=== PATIENT | female | born 1950 | race Caucasian/White ===

== ENCOUNTER 2016-07-20 10:52 | Outpatient (CLI) | payer MEDICARE, OTHER | END 2016-07-20 10:53 | disposition home or self-care (01) | DX: Z12.31 Encounter for screening mammogram for malignant neoplasm of breast (principal) ==

== ENCOUNTER 2016-09-03 14:33 | Outpatient (CLI) | payer MEDICARE, OTHER ==
[2016-09-03 19:44] LABS: BASOPHILS % (AUTO) 0.7 %; EOSINOPHILS # (AUTO) 0.1 10^3/uL (0.0-0.7); HCT - HEMATOCRIT 44.1 % (37.0-47.0); HGB - HEMOGLOBIN 14.6 g/dL (12.0-16.0); LYMPHOCYTES # (AUTO) 1.8 10^3/uL (1.5-3.5); LYMPHOCYTES % (AUTO) 31.6 %; MEAN CORPUSCULAR HEMOGLOBIN 31.9 pg (27.0-31.0); MEAN CORPUSCULAR VOLUME 96.5 fL (81.0-99.0); MEAN PLATELET VOLUME 8.6 fL (7.9-10.8); MONOCYTES # (AUTO) 0.4 10^3/uL (0.0-1.0); NEUTROPHILS # (AUTO) 3.4 10^3/uL (1.5-6.6); NEUTROPHILS % (AUTO) 59.7 %; NUCLEATED RED BLOOD CELLS AUTO 0.1 /100WBC; RED BLOOD COUNT 4.57 10^6/uL (4.20-5.40); RED CELL DISTRIBUTION WIDTH 13.5 % (12.0-15.0); UNCORRECTED WHITE BLOOD COUNT 5.8 x10^3/uL; WHITE BLOOD COUNT 5.8 x10^3/uL (4.8-10.8)
[2016-09-03 20:00] LABS: HEMOGLOBIN A1C 0.63 g/dL
[2016-09-03 20:02] LABS: ALBUMIN/GLOBULIN RATIO 1.4 (1.0-2.2); BILIRUBIN,TOTAL 0.6 mg/dL (0.2-1.0); BUN - BLOOD UREA NITROGEN 20 mg/dL (6-20); CALCIUM 9.2 mg/dL (8.5-10.3); CARBON DIOXIDE - CO2 28 mmol/L (21-32); CHLORIDE 106 mmol/L (101-111); CHOL/HDL RATIO 4.8 (<4.4); CHOLESTEROL 268 mg/dL; CREATININE 1.1 mg/dL (0.4-1.0); GFR - MDRD 50 (>89); GLUCOSE 105 mg/dL (70-100); HDL CHOLESTEROL 56 mg/dL; POTASSIUM 4.2 mmol/L (3.5-5.0); SODIUM 141 mmol/L (135-145); TRIGLYCERIDES 232 mg/dL; VLDL CHOLESTEROL 46 mg/dL
== END 2016-09-03 14:34 | disposition home or self-care (01) ==
LOC: LAB.N 14:33
PROVIDERS: ATTEND Nurse Practitioner Gerontology
DX: E11.9 Type 2 diabetes mellitus without complications (principal); Z79.899 Other long term (current) drug therapy
CPT/HCPCS: 36415; 80053; 80061; 83036; 84443; 85025

== ENCOUNTER 2016-10-11 13:31 | Outpatient (CLI) | payer MEDICARE, OTHER | END 2016-10-11 13:32 | disposition home or self-care (01) | LOC: SC 13:31 | PROVIDERS: ATTEND Internal Medicine Pulmonary Disease | DX: G47.33 Obstructive sleep apnea (adult) (pediatric) (principal) | CPT/HCPCS: 99203; G0463; 99212 ==

== ENCOUNTER 2016-11-01 19:30 | Outpatient (CLI) | payer MEDICARE, OTHER | END 2016-11-01 19:31 | disposition home or self-care (01) | LOC: SC 19:30 | PROVIDERS: ATTEND Internal Medicine Pulmonary Disease | DX: G47.33 Obstructive sleep apnea (adult) (pediatric) (principal) | CPT/HCPCS: 95810 ==

== ENCOUNTER 2016-12-01 09:54 | Outpatient (CLI) | payer MEDICARE, OTHER | END 2016-12-01 09:55 | disposition home or self-care (01) | LOC: SC 09:54 | PROVIDERS: ATTEND Nurse Practitioner Family | DX: G47.33 Obstructive sleep apnea (adult) (pediatric) (principal) | CPT/HCPCS: 99214; G0463; 99212 ==

== ENCOUNTER 2017-06-14 10:34 | Outpatient (CLI) | payer MEDICARE, OTHER ==
--- NOTE | 2017-06-14 15:19 | XRAY Report ---
TWO VIEW CHEST: 06/14/2017 CLINICAL INDICATION: Shortness of breath, congestion. COMPARISON: 09/04/2013. FINDINGS: Frontal and lateral views of the chest demonstrate a normal cardiac silhouette. The lungs are clear. No effusion or pneumothorax is present. IMPRESSION: NORMAL CHEST, UNCHANGED. TD: 06/14/2017 15:18
== END 2017-06-14 10:35 | disposition home or self-care (01) ==
LOC: DI 10:34
PROVIDERS: ATTEND Internal Medicine Hematology & Oncology
DX: R05 Cough (principal); R06.02 Shortness of breath
CPT/HCPCS: 71046

== ENCOUNTER 2017-07-21 12:58 | Outpatient (CLI) | payer MEDICARE, OTHER ==
--- NOTE | 2017-07-22 11:56 | Mammography Report ---
DIGITAL SCREENING RIGHT MAMMOGRAM: 07/21/2017 CLINICAL INDICATION: A 66-year-old with personal history of left breast cancer , status post mastectomy and chemotherapy, for screening. TECHNIQUE: Right CC and MLO views were obtained. COMPARISON: 07/2016, 05/2015, 04/2014, 02/2013, 02/2012, 12/2010. FINDINGS: The right breast demonstrates scattered fibroglandular densities. Punctate, typically benign calcifications are present. No suspicious masses, clustered microcalcifications, or regions of architectural distortion are identified. IMPRESSION: BENIGN FINDINGS. RECOMMENDATION: ROUTINE ANNUAL SCREENING UNLESS OTHERWISE CLINICALLY INDICATED. BIRADS CATEGORY 2 - BENIGN FINDINGS. STANDARD QUALIFYING STATEMENTS 1. This examination was reviewed with the aid of Computer-Aided Detection (CAD) . 2. A negative or benign imaging report should not delay biopsy if clinically suspicious findings are present. Consider surgical consultation if warranted. More than 5% of cancers are not identified by imaging. 3. Dense breasts may obscure an underlying neoplasm. TD: 07/22/2017 11:55 VICTOR M
== END 2017-07-21 12:59 | disposition home or self-care (01) ==
LOC: DI 12:58
PROVIDERS: ATTEND Internal Medicine Hematology & Oncology
DX: Z12.31 Encounter for screening mammogram for malignant neoplasm of breast (principal); Z85.3 Personal history of malignant neoplasm of breast; Z90.12 Acquired absence of left breast and nipple

== ENCOUNTER 2018-08-28 15:52 | Outpatient (CLI) | payer MEDICARE, OTHER ==
--- NOTE | 2018-08-29 10:19 | Mammography Report ---
Reason: L BREAST CA Procedure Date: 08/28/2018 Accession Number: [id number] / [id number] Procedure: [facility] - Screening Mammo Right w/Ramón CPT Code: FULL RESULT: EXAM: Screening Mammo Right w/Ramón DATE: 08/28/2018 4:28 PM CLINICAL HISTORY: Screening encounter. Personal history of breast cancer status post left mastectomy. TECHNIQUE: (R) - Right CC and MLO views were obtained. COMPARISON: 07/21/2017 through 04/16/2014. PARENCHYMAL PATTERN: (A) - The breast(s) demonstrate(s) scattered fibroglandular densities. FINDINGS: There are coarse typically benign calcifications. There are no suspicious masses, calcifications, or areas of distortion. IMPRESSION: Benign findings. BI-RADS category 2. RECOMMENDATION: (ANNUAL) - Recommend routine annual screening mammography. BI-RADS CATEGORY: (2) - Benign Findings. STANDARD QUALIFYING STATEMENTS: 1. This examination was not reviewed with the aid of Computer-Aided Detection (CAD). 2. A negative or benign imaging report should not preclude biopsy if clinically suspicious findings are present. 3. Dense breasts may obscure an underlying neoplasm. 4. This examination was reviewed with the aid of 3D breast imaging (tomosynthesis).
== END 2018-08-28 15:53 | disposition home or self-care (01) ==
LOC: DI 15:52
PROVIDERS: ATTEND Internal Medicine Hematology & Oncology
DX: Z12.31 Encounter for screening mammogram for malignant neoplasm of breast (principal); Z85.3 Personal history of malignant neoplasm of breast; Z90.12 Acquired absence of left breast and nipple
CPT/HCPCS: 77063

== ENCOUNTER 2018-12-13 12:45 | Outpatient (CLI) | payer MEDICARE, OTHER ==
--- NOTE | 2018-12-13 13:34 | SLEEP CARE CONSULTATION ---
Information from patient questionnaire entered by Modesta Ruff. I have reviewed and concur with the information entered by Modesta Ruff. This document represents the service I personally performed and the decisions made by me, Whitney Miramontes, RN, MSN, DROSOPHERE OPERATOR. History of Present Illness Previous diagnosis: Mild, Obstructive Sleep Apnea-Hypopnea Syndrome AHI: 13.4 Reason for CPAP/BiPAP follow up: annual, other (with oral appliance) HPI additional information: Patient is here today to evaluate effectiveness of oral appliance. She has been using an oral appliance since 2010. She had a new appliance made in 2017 after seen here with Dr. Jade in [place]. She submitted to Medicare with some coverage refunded. She has been using it nightly since. She feels more rested with use. She has no way of knowing if reduced the snoring as she is single and sleeps alone. Subjective On therapy, patient: denies: drowsiness while driving Initial [place] Sleepiness Scale score: 11 Current [place] Sleepiness Scale score: 13 Allergies and Home Medications Known drug allergies: No (some environmental allergies ) Home medication list reviewed: Yes Allergy and home medication list: 1. Bupropin: [id number] per day 2. Venlafaxine: 225mg 1x per day Review of Systems Review of systems same as previous: No (Injured left rotator with benefit from PT / plantar facitis better with PT) Physical Exam Blood Pressure: 122/72 Cuff size: long Heart Rate: 89 O2 Saturation: 98 Height: 5 ft 5.5 in Weight (kg): 95.436 kg Body Mass Index: 34.4 BMI Classification: Class 1 Heart: regular rate and rhythm Lungs: clear bilaterally Abdomen: soft Extremities: no edema or clubbing Impression and Plan Obstructive sleep apnea, mild, with good benefit stated from oral appliance in reduction of sleepiness symptoms. She uses the device nightly and feels the oral appliance is comfortable to use and denies jaw pain. Patient is here today to check effectiveness of oral appliance in reducing apnea. This can be done with a polysomnography using the oral appliance. With this data, it can seen if apnea control is effective. If not, further adjustment can be done. Treatment of her apnea can benefit her depression which the patient states is well controlled at this time and medications have been reduced recently. For her weight concerns. We looked at BMI chart and discussed her most comfortable weight in past to have a goal. It was 185 pounds when she was taller. Thus she is advised first to have this as her weight goal but encouraged to work with a relay associate for optimal results. She can discuss a referral with her PCP. The goal is to reduce waist circumference to reduce health risks. She is active physically which should reduce some health risks. Patient agreed with plan. Plan: Attempt to lose weight, Avoid alcohol, sedatives, and muscle relaxants around bedtime, Schedule polysomnography Follow up to be scheduled in: after polysomnography I spent 100% of this 30 minute visit face to face with the patient with greater than 50% of this was spent time counseling the patient and coordination of care.
[2018-12-13 13:35] VITALS: BP 122/72
== END 2018-12-13 12:46 | disposition home or self-care (01) ==
LOC: SC 12:45
PROVIDERS: ATTEND Nurse Practitioner Family
DX: G47.33 Obstructive sleep apnea (adult) (pediatric) (principal)
CPT/HCPCS: 99214; G0463; 99212

== ENCOUNTER 2018-12-27 19:49 | Outpatient (CLI) | payer MEDICARE, OTHER | END 2018-12-27 19:50 | disposition home or self-care (01) | LOC: SC 19:49 | PROVIDERS: ATTEND Internal Medicine Pulmonary Disease | DX: G47.33 Obstructive sleep apnea (adult) (pediatric) (principal); G47.61 Periodic limb movement disorder | CPT/HCPCS: 95810 ==

== ENCOUNTER 2019-01-31 13:16 | Outpatient (CLI) | payer MEDICARE, OTHER ==
[2019-01-31 14:16] VITALS: BP 120/70
--- NOTE | 2019-01-31 14:16 | SLEEP CARE CONSULTATION ---
Information from patient questionnaire entered by Modesta Ruff. I have reviewed and concur with the information entered by Modesta Ruff. This document represents the service I personally performed and the decisions made by me, Whitney Miramontes RN, MSN, BREAD ROOM HAND. History of Present Illness Initial [place] Sleepiness Scale score: 11 Current [place] Sleepiness Scale score: 10 (Using Oral Appliance) Additional HPI information: MAURO SHOOK returns for follow up of the recently performed polysomnography with oral appliance. However, she has difficulty falling to sleep and maintaining sleep. She reports that she has difficulty sleeping in new environment initially. The patient was informed of the following polysomnography findings. The report did not include her use of oral appliance but found in tech notes and will inform Dr. Waggoner so he can correct report. I explained the pathophysiology behind obstructive sleep apnea. Because apnea is primarily in supine position, then positional management therapy could be effective. Methods discussed such as positioning with pillows, using a T-shirt with tennis balls in the back, and shown commercial products that have a pillow format on back to prevent supine sleep. I reviewed the impact of weight changes on sleep apnea and strongly recommended losing weight. She would like to continue with oral appliance. She has used CPAP in past and did not like. Patient counseled not drink alcohol less than 4 hours before bedtime as it can increase snoring and apnea. Patient was cautioned about risks of drowsy driving until sleepiness symptoms resolve. Patient denies drowsy driving. Sleep Study - Polysomnography Polysomnography findings: The quality of the study is good. The patient had reduced sleep efficiency due to frequent awakenings after the sleep onset. The sleep architecture was abnormal for sleep fragmentation and reduced amount of time spent in REM sleep. Respiratory monitoring showed mild obstructive sleep apnea-hypopnea (AHI = 5.2) associated with frequent arousals, oxyhemoglobin desaturation and mild hypoxia (shahid oxygen saturation of 87%). This is despite the patient wearing the oral appliance. The respiratory events occurred almost exclusively during supine sleep (supine AHI = 10.3; non-supine = 3.48). Snore was loud in intensity. There was mild periodic leg movement of sleep contributing to the sleep fragmentation. Cardiac rhythm was normal sinus rhythm without significant arrhythmia. No abnormal behavior (parasomnia) observed during the night. Allergies and Home Medications Known drug allergies: No Home medication list reviewed: Yes (no changes) Review of Systems Review of systems same as previous: Yes Physical Exam Blood Pressure: 120/70 Cuff size: long Heart Rate: 91 O2 Saturation: 98 Height: 5 ft 5.5 in Weight: 206 lb 12.8 oz Weight change since last visit: lost 4 pounds Body Mass Index: 33.9 BMI Classification: Obesity Class 1 Impression and Plan 1. Obstructive Sleep Apnea-Hypopnea Syndrome, mild, with lowest oxygen saturation of 87% even with use of her oral appliance. Currently she feels the oral appliance has reduced sleepiness symptoms and would like to continue as she did not like using CPAP in the past. She was informed that her appliance needed further adjustment. A list of accredited given as her dentist retired. She will check if her regular dentist can make adjustments. In addition she is advised to continue to lose weight as this will reduce her apnea risk. She has been referred to a audit intern to assist her to lose weight. Because the apnea is more severe supine, I instructed to avoid sleeping supine using pillow positioning or Tshirt with tennis balls in spine until able to have her appliance adjusted. We also discussed that once her appliance is adjusted and her symptoms are further reduced. She would like to have a HST to retest her appliance as feels she would sleep better in her own bed. The sleep study conclusion did not mention that patient used her oral appliance but was in the techinician note. So I will have Dr. Ordoñez review and revise report. A copy will then be sent to patient and PCP. * Adjust oral appliance * continue to lose weight. * Avoid alcohol consumption near bedtime. * Avoid supine sleep until appliance adjusted. * Report review by Dr Waggoner to reflect appliance use. * Return after all adjustments made, about 2-3 months. I spent 100% of this 35 minute visit face to face with the patient with greater than 50% of this was spent time counseling the patient and coordination of care.
== END 2019-01-31 13:17 | disposition home or self-care (01) ==
LOC: SC 13:16
PROVIDERS: ATTEND Nurse Practitioner Family
DX: G47.33 Obstructive sleep apnea (adult) (pediatric) (principal); E66.9 Obesity, unspecified; Z68.33 Body mass index [BMI] 33.0-33.9, adult
CPT/HCPCS: 99214; G0463; 99212

== ENCOUNTER 2019-06-04 13:53 | Outpatient (CLI) | payer MEDICARE, OTHER ==
[2019-06-04 14:55] VITALS: BP 122/66
--- NOTE | 2019-06-04 14:55 | SLEEP CARE CONSULTATION ---
Information from patient questionnaire entered by Modesta Ruff. I have reviewed and concur with the information entered by Modesta Ruff. This document represents the service I personally performed and the decisions made by me, Whitney Miramontes, RN, MSN, LOADER UNLOADER. History of Present Illness Previous diagnosis: Mild, Obstructive Sleep Apnea-Hypopnea Syndrome AHI: 5.2 Reason for follow up: other (2 month with oral appliance) HPI additional information: Patient brought her oral appliance to her personal dentist to evaluate as her dentist who made the oral appliance retired. She did not contact the office to see if there someone to refer to from his office base. She is still is using her oral appliance and continues to feel that she sleeps better, awakens refreshed and is more rested overall. She also states that she prefers to sleep on her side as it is uncomfortable on her back or stomach. She never wakes on her back. She has also been to a latex dipper to lose weight and has a plan. Subjective Initial [place] Sleepiness Scale score: 11 Current [place] Sleepiness Scale score: 2 Allergies and Home Medications Known drug allergies: No Home medication list reviewed: Yes (no changes except added Red Yeast rice per PCP ) Allergy and home medication list: venlafaxine HCL 225mg daily bupropion 300mg daily vitamine D 5000 daily omega 3 fish oil 1000mg daily Probiotic daily multivitamin daily Review of Systems Review of systems same as previous: Yes Physical Exam Blood Pressure: 122/66 Cuff size: long Heart Rate: 83 O2 Saturation: 98 Height: 5 ft 5.5 in Weight: 208 lb 12.8 oz Weight change since last visit: gained 2 pounds Body Mass Index: 34.2 BMI Classification: Obese Impression and Plan 1. Obstructive Sleep Apnea-Hypopnea Syndrome, mild , with nightly use of oral appliance except a 4 nights of use to re-evaluate effectiveness. The nights she uses her oral appliance she sleeps better and awakens refreshed is more rested overall. But when she did not use her oral appliance she did not awaken refreshed and was more tired during the day. She is planning on losing about 15- 20 pounds over the next 6 months which will reduce apnea risk, and overall health risks and bring her BMI down 29-30. She states she did not snore at this weight. Currently until then, she would like to ensure her oral appliance is adjusted properly. So she is advised to contact her retired dentist office is open to discuss referral or she can contact one of the accredited dentists for Medicare on the list given. Patient's apnea severity and rationale for treatment to reduce apnea, improve sleep quality and reduce cardiovascular and cerebrovascular events was reviewed. Her next follow up would be scheduled if she had her appliance adjusted to check effectiveness or if lost significant weight to see if apnea still present. * Continue oral appliance * * Notify me if snoring with mask or feeling that the pressure is too much or too little * Attempt to lose weight * Call this office if any problems using CPAP * Return for follow up as indicated. Time Spent with Patient (minutes): 35 I spent 100% of this visit face to face with the patient with greater than 50% of this was spent time counseling the patient and coordination of care.
== END 2019-06-04 13:54 | disposition home or self-care (01) ==
LOC: SC 13:53
PROVIDERS: ATTEND Nurse Practitioner Family
DX: G47.33 Obstructive sleep apnea (adult) (pediatric) (principal); E66.9 Obesity, unspecified; Z68.34 Body mass index [BMI] 34.0-34.9, adult
CPT/HCPCS: 99214; G0463; 99212

== ENCOUNTER 2019-11-28 15:03 | Outpatient (CLI) | payer MEDICARE, OTHER ==
--- NOTE | 2019-11-29 10:02 | Mammography Report ---
UNILATERAL RIGHT DIGITAL SCREENING MAMMOGRAM 3D/2D: 11/28/2019 CLINICAL: Routine screening. Comparison is made to exams dated: 08/28/2018 mammogram, 07/21/2017 mammogram, 07/20/2016 mammogram, mammogram, 04/16/2014 mammogram, and 02/12/2013 mammogram - [facility]. There are scattered fibroglandular elements in right breast. No significant masses, calcifications, or other findings are seen in the breast. There has been no significant interval change. IMPRESSION: NEGATIVE There is no mammographic evidence of malignancy. A 1 year screening mammogram is recommended. This exam was interpreted at Station ID: [id number]. NOTE: For mammograms, a report in lay terms will be sent to the patient. Approximately 15% of breast malignancies will not be visualized mammographically. In the management of a palpable breast mass, a negative mammogram must not discourage biopsy of a clinically suspicious lesion. Electronically Signed By: Ton rios/celeste:11/28/2019 16:30:31 ACR BI-RADS Category 1: Negative 3341F PARENCHYMAL PATTERN: (A) - The breast(s) demonstrate(s) scattered fibroglandular densities. BI-RADS CATEGORY: (1) - 1 RECOMMENDATION: (ANNUAL) - Recommend routine annual screening mammography. [id number] 1 year screening LATERALITY: (B)
== END 2019-11-28 15:04 | disposition home or self-care (01) ==
LOC: DI.N 15:03
PROVIDERS: ATTEND Internal Medicine Hematology & Oncology
DX: Z12.31 Encounter for screening mammogram for malignant neoplasm of breast (principal)
CPT/HCPCS: 77063

== ENCOUNTER 2020-07-11 11:48 | Outpatient (CLI) | payer MEDICARE, OTHER ==
--- NOTE | 2020-07-11 12:30 | SLEEP CARE CONSULTATION ---
Information from patient questionnaire entered by Modesta Ruff. I have reviewed and concur with the information entered by Modesta Ruff. This document represents the service I personally performed and the decisions made by , Angie Peoples ARNP. History of Present Illness Service Date and Time: 07/11/2020 1148 Previous diagnosis: Mild, Obstructive Sleep Apnea-Hypopnea Syndrome AHI: 5.2 (in 2019 )(5.5 in 2017) Reason for follow up: annual (last seen 05/2019 - oral appliance ) Prior sleep studies: Yes Year and Where: 2018 and [address] [facility] Type of Sleep Study: Polysomnography HPI additional information: MAURO SHOOK was diagnosed to have mild, AHI 5.2 (2018)/5.5 (2017), obstructive sleep apnea-hypopnea syndrome and returned today for oral appliance therapy annual follow-up. CPAP Compliance Data Compliance data discussion: Patient has been using an oral appliance for her obstructive sleep apnea. She uses it nightly and has used it [365] days over the last year. Her current oral appliance has a crack on the bottom piece of the device. She needs her device re placed. Subjective Patient concerns: reports: nasal congestion, other (Device - proper fit, need new one as lower one is broken) Initial [place] Sleepiness Scale score: 11 (in 2017) Current [place] Sleepiness Scale score: 10 Allergies and Home Medications Home medication list reviewed: Yes (no changes) Review of Systems Review of systems same as previous: Yes (no changes) Physical Exam Heart Rate: 91 O2 Saturation: 92 Height: 5 ft 5.5 in Weight: 223 lb Body Mass Index: 36.5 BMI Classification: Obese Impression and Plan 1. Obstructive Sleep Apnea-Hypopnea Syndrome, mild, who has been using an oral appliance nightly with no nights missed. On oral appliance therapy, the patient has better sleep quality and is more rested overall. Her [place] is 10/24 today and she states she is tired the next day if she is not able to sleep with her oral device. She needs to replace her oral appliance because the lower portion is broken and her dentist states it cannot be repaired. He recommended that she come in because she had a lot of trouble getting Medicare to pay for her oral appliance. I will write a prescription to replace her oral appliance and a letter explaining need of replacement with her diagnosis. Patient's apnea severity and rationale for treatment to reduce apnea, improve sleep quality and reduce cardiovascular and cerebrovascular events was reviewed. * Continue oral appliance therapy for her mild GAVINO * Prescription for replacement device * Attempt to lose weight * Return for follow up in 1 year, or sooner if concerns arise Counseling Topics: Weight loss health impact Visit Type: In Office Time Spent with Patient (minutes): 26 Provider Statement: I spent 100% of the Face to Face Visit with the patient with greater than 50% spent counseling the patient and coordination of care.
== END 2020-07-11 11:49 | disposition home or self-care (01) ==
LOC: SC 11:48
PROVIDERS: ATTEND Nurse Practitioner Family
DX: G47.33 Obstructive sleep apnea (adult) (pediatric) (principal); E66.9 Obesity, unspecified; Z68.36 Body mass index [BMI] 36.0-36.9, adult
CPT/HCPCS: 99213; G0463; 99212

== ENCOUNTER 2022-08-18 12:46 | Outpatient (CLI) | payer MEDICARE, OTHER ==
--- NOTE | 2022-08-19 09:13 | Mammography Report ---
UNILATERAL RIGHT DIGITAL SCREENING MAMMOGRAM 3D/2D: 08/18/2022 CLINICAL: Routine screening. Personal history of left breast cancer. Comparison is made to exams dated: 11/28/2019 mammogram, 08/28/2018 mammogram, 07/21/2017 mammogram, 02/2017 mammogram, 05/27/2015 mammogram, and 04/16/2014 mammogram - [facility]. There are scattered areas of fibroglandular density in the right breast (category b / 25%-50% glandul ar tissue). No significant masses, calcifications, or other findings are seen in the breast. There has been no significant interval change. IMPRESSION: NEGATIVE There is no mammographic evidence of malignancy. A 1 year screening mammogram is recommended. This exam was interpreted at Station ID: [id number]. NOTE: For mammograms, a report in lay terms will be sent to the patient. Approximately 15% of breast malignancies will not be visualized mammographically. In the management of a palpable breast mass, a negative mammogram must not discourage biopsy of a clinically suspicious lesion. Electronically Signed By: Eduardo concepcion/celeste:08/18/2022 14:45:13 letter sent: No_Letter ACR BI-RADS Category 1: Negative 3341F PARENCHYMAL PATTERN: (A) - The breast(s) demonstrate(s) scattered fibroglandular densities. BI-RADS CATEGORY: (1) - 1 Mammogram [id number] 1 year screening LATERALITY: (B)
== END 2022-08-18 12:47 | disposition home or self-care (01) ==
LOC: DI 12:46
DX: Z12.31 Encounter for screening mammogram for malignant neoplasm of breast (principal); Z85.3 Personal history of malignant neoplasm of breast

== ENCOUNTER 2022-10-13 16:36 | Outpatient (CLI) | payer MEDICARE, OTHER ==
--- NOTE | 2022-10-13 12:18 | SLEEP CARE CONSULTATION ---
Information from patient questionnaire entered by Heaven Mukherjee. I have reviewed and concur with the information entered by Heaven Mukherjee. This document represents the service I personally performed and the decisions made by me, Angie Peoples ARNP. History of Present Illness Service Date and Time: 10/13/2022 1140 Previous diagnosis: Mild, Obstructive Sleep Apnea-Hypopnea Syndrome AHI: 5.2 (in 2019 )(5.5 in 2017) Reason for follow up: other (LAST SEEN 08/2021) Equipment type: Dental Appliance (2019 SLEEP STUDY,) Prior sleep studies: Yes Year and Where: 2018 and 2016 - [facility] Type of Sleep Study: Polysomnography HPI additional information: MAURO SHOOK was diagnosed to have mild, AHI 5.2, obstructive sleep apnea- hypopnea syndrome and returns via telehealth visit today for Oral appliance therapy annual follow-up. Sleep Study - Results Type of Sleep Study: Polysomnography Prior sleep studies: Yes Year and Where: 2018 and 2016 - [facility] CPAP Compliance Data Compliance data discussion: She is wearing her oral appliance every night without difficulty. Subjective On therapy, patient: reports: sleeping better, other (She will awaken refreshed but within 1-2 hours she is feeling fatigued and will need naps). denies: drowsiness while driving Initial [place] Sleepiness Scale score: 11 (in 2016) Current [place] Sleepiness Scale score: 17 () Allergies and Home Medications Known drug allergies: No Drug allergies reviewed: Yes Home medication list reviewed: Yes (Atorvastatin 10 mg) Allergy and home medication list: Allergies No Known Drug Allergies Allergy (Verified 10/13/22 10:05) Review of Systems Review of systems same as previous: No (extreme fatigue) Physical Exam Vital signs obtained and entered by: HEAVEN Montgomery MA Height: 5 ft 6 in (PER PT) Weight: 210 lb (PER PT) Weight change since last visit: 4 lb loss Body Mass Index: 33.9 BMI Classification: Obese Impression and Plan 1. Obstructive Sleep Apnea-Hypopnea Syndrome, mild, using an oral appliance. Patient coming in with concerns about extreme daily fatigue. She states she even went to the ED with fatigue and shortness of breath. They have run a lot of tests and so far have not uncovered a definitive cause but evidently there was some lung issue. She did not understand what it was and has a follow up with cardiology for further evaluation although so far her heart has checked out fine. She saw a electrical installation supervisor too. She says they are even considering long covid even though she tests negative for covid. She is here because her PCP is wanting to see if there are any changes with her sleep apnea. She is using her oral appliance faithfully every night. This is a new device she received 2 years ago. She has never done a study with it in place to check the effectiveness. I think we should have her complete a PSG with the oral appliance in place to see how effective it is and if there are any changes. I will follow up with her after the sleep study is completed. Patient's apnea severity and rationale for treatment to reduce apnea, improve sleep quality and reduce cardiovascular and cerebrovascular events was reviewed. 2. Obesity, unspecified. Currently patients BMI is 33.9. Obesity increases the risk of apnea, CPAP pressure requirements and overall health risks especially cardiovascular and diabetes. Thus patient is advised to continue to try to lose weight. -Continue oral appliance therapy -PSG with oral appliance in place -Attempt to lose weight -Call this office if any problems -Return for follow up after PSG with oral appliance, or sooner if concerns arise Counseling Topics: Weight loss health impact Visit Type: Telehealth Phone Video Type: Yoshi Patient Location: Home Location of Provider: Office Patient agrees and consents to this telehealth visit type: Yes Patient agrees to have their insurance billed: Yes Time Spent with Patient (minutes): 15 Provider Statement: I spent 100% of the Telehealth Phone Call with the patient with greater than 50% spent counseling the patient and coordination of care.
== END 2022-10-13 16:37 | disposition home or self-care (01) ==
LOC: SC 16:36
PROVIDERS: ATTEND Nurse Practitioner Family
DX: G47.33 Obstructive sleep apnea (adult) (pediatric) (principal); E66.9 Obesity, unspecified; Z68.33 Body mass index [BMI] 33.0-33.9, adult

== ENCOUNTER 2022-10-17 20:29 | Outpatient (CLI) | payer MEDICARE, OTHER | END 2022-10-17 20:30 | disposition home or self-care (01) | LOC: SC 20:29 | PROVIDERS: ATTEND Nurse Practitioner Family | DX: G47.33 Obstructive sleep apnea (adult) (pediatric) (principal); R09.02 Hypoxemia | CPT/HCPCS: 95810 ==

== ENCOUNTER 2022-11-05 12:44 | Outpatient (CLI) | payer MEDICARE, OTHER ==
--- NOTE | 2022-11-05 13:25 | Sleep Patient Instructions ---
Sleep Center Visit Summary - Patient Visit Information Reason for Visit: Sleep study followup with oral device in place - Patient Instructions Additional Instructions: You were here for follow up of Oral appliance therapy. You will be continued Oral appliance. You should follow up with sleep care in 12 months. You may contact us sooner for any questions or concerns. - Clinic Information Contact: [facility] [address] [place] [address] [email or web address] T: [phone]
--- NOTE | 2022-11-05 13:30 | SLEEP CARE CONSULTATION ---
Information from patient questionnaire entered by Heaven Mukherjee. I have reviewed and concur with the information entered by Heaven Mukherjee. This document represents the service I personally performed and the decisions made by , Angie Peoples ARNP. History of Present Illness Service Date and Time: 11/05/2022 1244 Initial [place] Sleepiness Scale score: 11 (in 2017) Current [place] Sleepiness Scale score: 12 (11/05/22) Additional HPI information: MAURO SHOOK returns for follow up and results of the recently performed polysomnography with her oral appliance in place. The patient was informed of the following findings: No significant sleep disordered breathing with an average AHI of [4] and shahid oxygen saturation of [80%]. Her baseline oxygen level was low at 90%. Sleep Study - Results Type of Sleep Study: Polysomnography (COMPLETED 10/17/22) Prior sleep studies: Yes Year and Where: 2018 and 2016 - [facility] Polysomnography/Home Sleep Study results: IMPRESSION: The quality of the study is good. The patient had reduced sleep efficiency due to a prolonged awakening in the middle of the night. The sleep architecture was relatively normal considering the first-night effect. Respiratory monitoring showed no significant sleep disordered breathing (AHI = 4.0). There was mild hypoxemia due to the low-normal baseline oxygen saturation of 90% (shahid oxygen saturation of 80%). The few respiratory events occurred almost exclusively during supine sleep (supine AHI = 6.2; non- supine = 3.67). Snore was light in intensity. There was no significant periodic leg movement of sleep. Cardiac rhythm was normal sinus rhythm without significant arrhythmia. No abnormal behavior (parasomnia) observed during the night. Allergies and Home Medications Known drug allergies: No Drug allergies reviewed: Yes Home medication list reviewed: Yes (Desvenlafaxine) Allergy and home medication list: Allergies No Known Drug Allergies Allergy (Verified 11/04/22 15:03) Review of Systems Review of systems same as previous: Yes (shortness of breath, chronic fatigue, some joint ache) Physical Exam Vital signs obtained and entered by: HEAVEN Montgomery MA Blood Pressure: 116/72 (LEFT ARM) Cuff size: regular Heart Rate: 103 O2 Saturation: 94 Height: 5 ft 6 in (PER PT) Weight: 214 lb 6.4 oz Body Mass Index: 34.6 BMI Classification: Obese Impression and Plan 1. Obstructive Sleep Apnea-Hypopnea Syndrome, mild. She returns after PSG with oral appliance in place to check efficiency. Her appliance appears to be effective but she does have a mildly elevated supine AHI at 6.2 and should avoid supine sleep or have her device adjusted by her dentist. She states she does not sleep on her back, she is a side sleeper normally. She feels her fatigue symptoms may be slightly improved since our last visit. Her PCP thinks she may have long Covid and she continues to have evaluations by cardiology and pulmonology. She continues to get short of breath with even light activity. Patient's apnea severity and rationale for treatment to reduce apnea, improve sleep quality and reduce cardiovascular and cerebrovascular events was reviewed. 2. Hypoxemia, mild, with a shahid oxygen saturation of 80% and 21.4 minutes spent under 90%. Her baseline oxygen saturation was low normal with an average oxygen saturation of 90%. Further evaluation of hypoxemia is recommended. She states she has an appointment with a dual hose cementer today and will discuss this with them. She has a copy of the sleep study to take with her. 3. Obesity, unspecified. Currently patients BMI is 34.6. Obesity increases the risk of apnea, CPAP pressure requirements and overall health risks especially cardiovascular and diabetes. Thus patient is advised to continue to try to lose weight. -Continue oral appliance therapy -Continue to try to lose weight -Call this office if any problems -Return for follow up in 1 year, or sooner if concerns arise Counseling Topics: Weight loss health impact Visit Type: In Office Time Spent with Patient (minutes): 29 Provider Statement: I spent 100% of the Face to Face Visit with the patient with greater than 50% spent counseling the patient and coordination of care.
[2022-11-05 13:31] VITALS: BP 116/72
== END 2022-11-05 12:45 | disposition home or self-care (01) ==
LOC: SC 12:44
PROVIDERS: ATTEND Nurse Practitioner Family
DX: G47.33 Obstructive sleep apnea (adult) (pediatric) (principal); R09.02 Hypoxemia; E66.9 Obesity, unspecified; Z68.34 Body mass index [BMI] 34.0-34.9, adult
CPT/HCPCS: 99213; G0463; 99212

== ENCOUNTER 2023-04-12 11:06 | Outpatient (CLI) | payer MEDICARE, OTHER ==
--- NOTE | 2023-04-12 12:04 | Sleep Patient Instructions ---
Sleep Center Visit Summary - Patient Visit Information Reason for Visit: 6 month followup with sleep care - Patient Instructions Additional Instructions: You were here for follow up of Oral appliance therapy. You will be continued on oral appliance therapy until after evaluation by pulmonology. I have given you a new prescription to update your oral appliance. You should follow up with sleep care in 3 months. You may contact us sooner for any questions or concerns. - Clinic Information Contact: [facility] [address] [place] [address] [email or web address] T: [phone]
--- NOTE | 2023-04-12 12:10 | SLEEP CARE CONSULTATION ---
Information from patient questionnaire entered by Heaven Mukherjee. I have reviewed and concur with the information entered by Heaven Mukherjee. This document represents the service I personally performed and the decisions made by me, Angie Peoples ARNP. History of Present Illness Service Date and Time: 04/12/2023 1106 Previous diagnosis: Mild, Obstructive Sleep Apnea-Hypopnea Syndrome AHI: 5.2 (in 2018 )(5.5 in 2017) Reason for follow up: six month (F/U DISCUSS TREATMENT OPTIONS) Equipment type: Dental Appliance (2018 SLEEP STUDY,) Prior sleep studies: Yes Year and Where: 2018 and 2016 - [facility] Sleep Type of Sleep Study: Polysomnography (COMPLETED 10/17/22) HPI additional information: MAURO SHOOK was diagnosed to have mild, AHI 5.2, obstructive sleep apnea- hypopnea syndrome and returned today for oral appliance therapy six month follow-up to discuss treatment options. Sleep Study - Results Type of Sleep Study: Polysomnography (COMPLETED 10/17/22) Prior sleep studies: Yes Year and Where: 2018 and 2016 - [facility] Sleep Subjective Initial [place] Sleepiness Scale score: 11 (in 2017) Current [place] Sleepiness Scale score: 11 (04/12/23) Allergies and Home Medications Known drug allergies: No Drug allergies reviewed: Yes Home medication list reviewed: Yes (Desvenlafacine 100 mg daily) Allergy and home medication list: Allergies No Known Drug Allergies Allergy (Verified 04/08/23 09:01) Review of Systems Review of systems same as previous: Yes (no changes) Physical Exam Vital signs obtained and entered by: HEAVEN Montgomery MA Blood Pressure: 135/87 (LEFT ARM) Cuff size: regular Heart Rate: 82 O2 Saturation: 95 Height: 5 ft 6 in (PER PT) Weight: 222 lb Body Mass Index: 35.8 BMI Classification: Obese Impression and Plan 1. Obstructive Sleep Apnea-Hypopnea Syndrome, mild. On oral appliance therapy, the patient has better sleep quality and is more rested overall. She says her oral appliance is 3 years old and getting worn out. She also had a new crown put on and now the appliance is causing a little mouth discomfort. We discussed other treatment options like the CPAP and Inspire implant therapy. She is set up for an evaluation by pulmonology to see if it would be better for her to be on CPAP, oral appliance or oxygen therapy. She is waiting for a device she takes home to evaluate her oxygen at night. I gave her a prescription for a new oral device because she would like to get one anyway but was having trouble finding a dentist to work with Medicare for her dental appliance. I gave her information about [facility] who have been good with working with patient's insurances. I will followup with her in 3 months. Patient's apnea severity and rationale for treatment to reduce apnea, improve sleep quality and reduce cardiovascular and cerebrovascular events was reviewed. 2. Obesity, unspecified. Currently patients BMI is 35.8. Obesity increases the risk of apnea and overall health risks especially cardiovascular and diabetes. Thus patient is advised to lose weight. * Continue Oral appliance * Notify me if snoring with mask or feeling that the pressure is too much or too little * Attempt to lose weight * Call this office if any problems * Return for follow up in 3 months, or sooner if concerns arise Counseling Topics: Sleeping position, Weight loss health impact Prescriptions: Other (replacement of oral device) Follow up with Sleep Care in: 3 months Visit Type: In Office Time Spent with Patient (minutes): 33 Provider Statement: I spent 100% of the Face to Face Visit with the patient with greater than 50% spent counseling the patient and coordination of care.
[2023-04-12 12:13] VITALS: BP 135/87; O2SAT 95
== END 2023-04-12 11:07 | disposition home or self-care (01) ==
LOC: SC 11:06
PROVIDERS: ATTEND Nurse Practitioner Family
DX: G47.33 Obstructive sleep apnea (adult) (pediatric) (principal); E66.9 Obesity, unspecified; Z68.35 Body mass index [BMI] 35.0-35.9, adult
CPT/HCPCS: 99213; G0463; 99212

== ENCOUNTER 2023-05-16 13:59 | Outpatient (CLI) | payer MEDICARE, OTHER ==
--- NOTE | 2023-05-16 20:50 | SLEEP CARE CONSULTATION ---
Information from patient questionnaire entered by Herbert Mukherjee. I have reviewed and concur with the information entered by Herbert Mukherjee. This document represents the service I personally performed and the decisions made by me, Miryam Waggoner MD, [facility]. History of Present Illness Service Date and Time: 05/16/2023 1359 Previous diagnosis: Mild, Obstructive Sleep Apnea-Hypopnea Syndrome AHI: 5.2 (in 2019 )(5.5 in 2017) Reason for follow up: other (ONE MONTH F/U) Equipment type: Dental Appliance (2019 SLEEP STUDY,) Prior sleep studies: Yes Year and Where: 2018 and 2016 - [facility] Sleep Type of Sleep Study: Polysomnography (COMPLETED 10/17/22) HPI additional information: Ms. Atkinson had mild obstructive sleep apnea-hypopnea that was adequately controlled with a mandibular advancing device. Without the device, she had mild obstructive sleep apnea-hypopnea (AHI was 5.5 in 2017). With the oral appliance, her AHI was 4.0 last year. However, her oxygen saturation remained low. She saw a engineering and operations director who is thinking about putting her on oxygen at night but would like to know if CPAP would be a better choice. The engineering and operations director did not say why her oxygen saturation was low. He did an overnight pulse oximetry whose results were similar to her sleep study. Sleep Study - Results Type of Sleep Study: Polysomnography (COMPLETED 10/17/22) Prior sleep studies: Yes Year and Where: 2018 and 2016 - [facility] Sleep Subjective Initial [place] Sleepiness Scale score: 11 (in 2017) Current [place] Sleepiness Scale score: 9 (05/16/23) Allergies and Home Medications Drug allergies reviewed: Yes Home medication list reviewed: Yes Allergy and home medication list: Allergies No Known Drug Allergies Allergy (Verified 04/12/23 11:25) Review of Systems Review of systems same as previous: Yes (PULMOOLGIST WANT PT SEEN ) Physical Exam Vital signs obtained and entered by: HERBERT Montgomery MA Blood Pressure: 155/84 (RIGHT ARM) Cuff size: regular Heart Rate: 59 O2 Saturation: 96 Height: 5 ft 6 in (PER PT) Weight: 219 lb 9.6 oz Body Mass Index: 35.4 BMI Classification: Obese Impression and Plan IMPRESSION: 1. Nocturnal hypoxia, possibly from obesity hypoventilation, assuming that her workups are all negative because the engineering and operations director did not mention why her oxygen saturation was low. Therefore, a BiPAP may be a better treatment option than oxygen at night. In order to start her on the positive airway pressure therapy, a sleep study is necessary to show that she actually has obstructive sleep apnea-hypopnea. Plan: 1. Schedule polysomnography without oral appliance. 2. Try to lose weight. 3. Avoid alcohol, sedative and muscle relaxant around bedtime. 4. Return for follow up to discuss results of the sleep study. Counseling Topics: Weight control Follow up with Sleep Care in: 1-2 months Visit Type: In Office Time Spent with Patient (minutes): 15 Provider Statement: I spent 100% of the Face to Face Visit with the patient with greater than 50% spent counseling the patient and coordination of care.
[2023-05-16 20:52] VITALS: BP 155/84; O2SAT 96
== END 2023-05-16 14:00 | disposition home or self-care (01) ==
LOC: SC 13:59
PROVIDERS: ATTEND Internal Medicine Pulmonary Disease
DX: R09.02 Hypoxemia (principal); G47.33 Obstructive sleep apnea (adult) (pediatric); E66.9 Obesity, unspecified; Z68.35 Body mass index [BMI] 35.0-35.9, adult
CPT/HCPCS: 99212; G0463

== ENCOUNTER 2023-05-18 20:28 | Outpatient (CLI) | payer MEDICARE, OTHER | END 2023-05-18 20:29 | disposition home or self-care (01) | LOC: SC 20:28 | PROVIDERS: ATTEND Internal Medicine Pulmonary Disease | DX: G47.33 Obstructive sleep apnea (adult) (pediatric) (principal); R09.02 Hypoxemia | CPT/HCPCS: 95810 ==

== ENCOUNTER 2023-08-24 13:42 | Outpatient (CLI) | payer MEDICARE, OTHER ==
--- NOTE | 2023-08-25 09:48 | Mammography Report ---
UNILATERAL RIGHT DIGITAL SCREENING MAMMOGRAM 3D/2D: 08/24/2023 CLINICAL: Routine screening. Personal history of left breast cancer. Comparison is made to exams dated: 08/18/2022 mammogram, 11/28/2019 mammogram, 08/28/2018 mammogram, 03/2018 mammogram, 07/20/2016 mammogram, and 05/27/2015 mammogram - [facility]. There are scattered areas of fibroglandular density in the right breast (category b / 25%-50% glandul ar tissue). There are benign post operative findings in the right breast. No significant masses, calcifications, or other findings are seen in the breast. There has been no significant interval change. IMPRESSION: BENIGN There is no mammographic evidence of malignancy. A 1 year screening mammogram is recommended. This exam was interpreted at Station ID: [id number]. NOTE: For mammograms, a report in lay terms will be sent to the patient. Approximately 15% of breast malignancies will not be visualized mammographically. In the management of a palpable breast mass, a negative mammogram must not discourage biopsy of a clinically suspicious lesion. Electronically Signed By: Naomie Schmitt M.D., Ph.D. eb/penrad:08/24/2023 14:54:24 letter sent: No_Letter ACR BI-RADS Category 2: Benign Finding(s) 3342F PARENCHYMAL PATTERN: (A) - The breast(s) demonstrate(s) scattered fibroglandular densities. BI-RADS CATEGORY: (2) - 2 RECOMMENDATION: (ANNUAL) - Recommend routine annual screening mammography. [id number] 1 year screening LATERALITY: (B)
== END 2023-08-24 13:43 | disposition home or self-care (01) ==
LOC: DI 13:42
PROVIDERS: ATTEND Internal Medicine Hematology & Oncology
DX: Z12.31 Encounter for screening mammogram for malignant neoplasm of breast (principal); Z85.3 Personal history of malignant neoplasm of breast; R92.321 Mammographic fibroglandular density, right breast